=== PATIENT | male | born 1965 | race Two or more races ===

== ENCOUNTER 2022-05-18 18:03 | Emergency (ER) | payer OTHER ==
[~2022-05-18] VITALS: Ht 162.6 cm; Wt 77.2 kg
[2022-05-18] MEDS ORDERED: LORazepam 2MG/ML-1ML VIAL IM ONE (20:45)
[2022-05-18 21:04] VITALS: BP 128/80
== END 2022-05-18 21:06 | disposition home or self-care (01) ==
LOC: EDBD 18:03 → ER 18:06
DX: F41.9 Anxiety disorder, unspecified (principal); F43.10 Post-traumatic stress disorder, unspecified
CPT/HCPCS: 96372; 99283; J2060